=== PATIENT | female | born 1975 | race Two or more races ===

== ENCOUNTER 2022-05-10 05:12 | Day surgery (SDC) | payer OTHER ==
[2022-05-06 15:44] VITALS: BMI 24.3
[2022-05-10 08:30] VITALS: RESP 20
[2022-05-10] MEDS ORDERED: KETOROLAC TROMETHAMINE 30 MG/1 ML VIAL ONE (09:48)
[2022-05-10] MEDS ORDERED: PROPOFOL 20 ML ONE ×2 (09:49)
[2022-05-10] MEDS ORDERED: MIDAZOLAM HCL 2 MG/2 ML SINGLE DOSE VIAL ONE (09:49)
[2022-05-10 14:30] VITALS: BP 98/71; PULSE 85; TEMP 97
== END 2022-05-10 14:36 | disposition home or self-care (01) ==
LOC: JASU-SURG 05:12
PROVIDERS: ATTEND Urology
PROC: 0TF4XZZ Fragmentation in Left Kidney Pelvis, External Approach (ICD-10-PCS; principal; 2022-05-10 10:20)
DX: N20.0 Calculus of kidney (principal)
CPT/HCPCS: 81025